=== PATIENT | female | born 1960 | race Caucasian/White ===

== ENCOUNTER → 2018-03-30 13:04 | Outpatient (CLI) | payer OTHER, SELFPAY ==
--- NOTE | 2018-03-30 | DI.US.S_ITS ---
PROCEDURE: US FINE NEEDLE ASPIRATION INDICATIONS: 58 year-old female with anterior left thyroid 1.1 cm nodule. TECHNIQUE: The indications, alternatives, benefits, risks, and complications of the procedure were explained to the patient. Written informed consent was obtained and placed in the chart. The thyroid region was examined sonographically and a site was chosen for ultrasound guided percutaneous sampling. The skin was prepared and draped in the usual fashion, and anesthetized with 1% lidocaine infiltrated from the skin down to the thyroid gland. Multiple passes were then performed, with contents emptied into an appropriate pathology specimen container. A bandage was applied to the area of access at completion of the study. COMPARISON: Outside Facility, RG, US THYROID, 01/15/2018, 13:23. FINDINGS: Location(s) of lesion(s) sampled: Anteroinferior left thyroid. Lutz: 25 and 22 gauge hypodermic needles. Number of passes: 6 total. Medications: 1% lidocaine for local anaesthesia. Complications: None immediate. IMPRESSION: Successful ultrasound-guided thyroid nodule fine needle aspiration of the larger left thyroid nodule, with cytology results pending. Please see chart below for management recommendations based on cytology results. [facility] ReportingRecommendationsNon-diagnostic* Repeat US-guided FNA, with on-site cytology evaluation if possible. * Repeated non-diagnostic nodules without high suspicion US features: close observation vs surgical consult. * Consider surgery if nodule has high suspicion US features, grows >20% in 2 dimensions on followup, or patient has clinical risk factors for malignancy. Benign* If nodule has high suspicion US features: repeat US and FNA within 12 months. * If nodule has low to intermediate suspicion US features: repeat US at 12-24 months. If nodule grows (20% increase in at least 2 dimensions, with minimal increase of 2 mm or >50% change in volume), or development of new suspicious US features, then repeat FNA or continue followup. * If nodule has very low suspicion US features: followup US at >24 months. Atypia of undetermined significance, follicular lesion of undetermined significanceRepeat FNA, molecular testing, followup US, or surgical consult.Follicular neoplasm, suspicious for follicular neoplasmSurgical consult; also consider molecular testing. Suspicious for malignancySurgical consult.MalignantSurgical consult. Dictated by: Tito Silva M.D. on 03/30/2018 at 14:42 Approved by: Tito Silva M.D. on 03/30/2018 at 14:43
--- NOTE | 2018-03-30 | PATH_ITS ---
Note [facility] Accession Number: [id number] TESTS RESULT FLAG UNITS REF RANGE LAB Clinician Provided Cytology Information No. of containers..01 ThinPrep Vial No. of containers..10 Previously Prepared Cytology Slide 01 L THYROID NODULE DIAGNOSIS: 02 L THYROID NODULE NEGATIVE FOR MALIGNANT CELLS. SPECIMEN CONSISTS OF BENIGN FOLLICULAR CELLS, HEMOSIDERIN-LADEN MACROPHAGES, COLLOID, AND BLOOD. THIS PATTERN IS CONSISTENT WITH A COLLOID NODULE. Pathologist ICD10: 02 E04.1 02 Luis Eduardo Fairchild MD, Pathologist NPI- [id number] 01 Vaughn Triplett, Student Ambassador ([facility]) 01 30 CC, PINK, CLEAR Also received 5 alcohol fixed, 5 quick stained slides, and one RNA vial for futher testing. /HKH FLAG LEGEND: L-Low Normal,H-High Normal,LL-Alert Low,HH-Alert High <-Panic Low,>-Panic High,A-Abnormal,AA-Critical Abnormal Performed at: 01 =Z [facility] [address], [place] [address] Terry Gilliland MD, 02 [facility] [address] [place] [id number] Tomas Arnett MD, Performed at: 01 [facility] [address], [place], [place] [id number] MD Terry Gilliland MD Phone: [phone]
== END ==
PROVIDERS: Visit Provider Family Medicine
DX: E04.1 Nontoxic single thyroid nodule (principal)
CPT/HCPCS: 10022; 76942

== ENCOUNTER → 2022-02-27 10:44 | Outpatient (CLI) | payer OTHER, SELFPAY ==
[2022-02-27 11:45] LABS: COVID19 -Nasal RAPID Negative (Negative)
== END ==
PROVIDERS: PCP Student in an Organized Health Care Education/Training Program; Referring Provider Internal Medicine; Visit Provider Internal Medicine
DX: Z20.822 Contact with and (suspected) exposure to COVID-19 (principal)
CPT/HCPCS: 87635; C9803

== ENCOUNTER → 2022-02-27 10:46 | Outpatient (CLI) | payer OTHER, SELFPAY ==
--- NOTE | 2022-03-09 13:49 | PM.PFT.1 ---
Pulmonary Function Test Referral & Results Date Patient Seen: 02/27/22 Requesting provider: Chan Dennis Results: The spirometry demonstrates an FVC of 3.21 L which is 92% of predicted. The FEV1 was measured at 2.58 L which is 96% of predicted. The FEV1/FVC ratio was 80 which is 104% of predicted. Following the administration of bronchodilator there was no appreciable change to above normal numbers Lung volumes show an SVC of 3.05 L which is 95% of predicted. The diffusing capacity was measured at 22.08 which is 81% of predicted. The maximum voluntary ventilation was normal Interpretation: This study demonstrates normal pulmonary function There may be a very minimal reduction diffusing capacity, however this could also be considered normal Clinical correlation suggested
== END ==
PROVIDERS: PCP Student in an Organized Health Care Education/Training Program; Referring Provider Student in an Organized Health Care Education/Training Program; Visit Provider Student in an Organized Health Care Education/Training Program
DX: R07.89 Other chest pain (principal); Z87.891 Personal history of nicotine dependence; Z20.822 Contact with and (suspected) exposure to COVID-19; J98.8 Other specified respiratory disorders
CPT/HCPCS: 87635; 93017; 94060; 94726; 94729; C9803

== ENCOUNTER → 2022-02-27 10:47 | Outpatient (CLI) | payer OTHER, SELFPAY ==
--- NOTE | 2022-02-27 19:34 | DI.NM.S_ITS ---
DATE OF SERVICE: 02/27/2022 PROCEDURE PERFORMED: Exercise stress test. INDICATIONS: Chest discomfort. CARDIAC STRESS: The patient underwent exercise stress test under the supervision of an attending staff. She walked on Tristian protocol for 6 minutes and 41 seconds, achieved 110 percent of target heart rate. Baseline blood pressure 140/88 mmHg. Peak blood pressure 180/108 mmHg, suggestive of hypertensive blood pressure response. The patient achieved 7.0 METs of workload and functional aerobic impairment positive 16 percent. Baseline rhythm was sinus with some nonspecific ST changes in lateral leads. During stress, significant artifacts seen. The patient has intermittent PVCs and an occasional four-beat run of nonsustained ventricular tachycardia. In the immediate recovery, there were some nonspecific ST-T changes. No sustained ventricular tachycardia seen. No chest pain or anginal symptoms. The patient felt fatigue. CONCLUSION: Exercise stress test is inconclusive to rule out ischemia due to artifacts during exercise. Some nonspecific ST-T changes in recovery. Diminished exercise tolerance. Hypertensive blood pressure response. Four- beats of nonsustained ventricular tachycardia seen during exercise. No sustained ventricular tachycardia, will recommend repeating exercise stress test with imaging modality like stress echo or exercise nuclear perfusion study. Sirisha Etienne - Shruti/amairani doc#: [id number]/job#: [id number] dd: 02/27/2022 17:34:00 dt: 02/27/2022 19:05:00 DICTATING /COPIES TO: Pacheco Hayes MD COPIES MNE: MAHESH;
== END ==
PROVIDERS: PCP Student in an Organized Health Care Education/Training Program; Referring Provider Student in an Organized Health Care Education/Training Program; Visit Provider Student in an Organized Health Care Education/Training Program
DX: R07.89 Other chest pain (principal)
CPT/HCPCS: 93017